=== PATIENT | female | born 1970 | race Caucasian/White ===

== ENCOUNTER 2020-04-29 15:38 | Emergency (ER) | payer SELFPAY ==
[2020-04-29] MEDS ORDERED: HYDROcodone/Acetaminophen 10/325 mg Tablet ONE (16:34)
[2020-04-29] MEDS ORDERED: Ciprofloxacin HCL/Dexameth Otic Drops 7.5 ml Bottle ONE (16:34)
== END 2020-04-29 18:25 | disposition home or self-care (01) ==
LOC: ERS 15:38
DX: H60.91 Unspecified otitis externa, right ear (principal); F17.210 Nicotine dependence, cigarettes, uncomplicated
CPT/HCPCS: 99282

== ENCOUNTER 2023-12-09 13:48 | Outpatient (CLI) | payer BC | END 2023-12-09 13:49 | disposition home or self-care (01) | LOC: BICMAMMO 13:48 | PROVIDERS: ATTEND Student in an Organized Health Care Education/Training Program | DX: Z12.31 Encounter for screening mammogram for malignant neoplasm of breast (principal); N63.20 Unspecified lump in the left breast, unspecified quadrant | CPT/HCPCS: 77063; 77067 ==

== ENCOUNTER 2023-12-15 14:57 | Outpatient (CLI) | payer BC | END 2023-12-15 14:58 | disposition home or self-care (01) | LOC: BICMAMMO 14:57 | PROVIDERS: ATTEND Student in an Organized Health Care Education/Training Program | DX: N63.21 Unspecified lump in the left breast, upper outer quadrant (principal) | CPT/HCPCS: G0279 ==